=== PATIENT | female | born 2000 | race Caucasian/White ===

== ENCOUNTER 2022-01-16 15:20 | Inpatient (IN) | payer OTHER ==
[2022-01-16 18:15] VITALS: BMI 29.8
[2022-01-16] MEDS ORDERED: DINOPROSTONE 10 MG VAGINAL SUPPOSITORY VG ONE (18:15)
[2022-01-16] MEDS: DEXTROSE 5%-LACTATED RINGERS 1,000 ML IV SCH (19:55)
[2022-01-16] MEDS ORDERED: ELECTROLYTE-148 SOLN 1,000 ML IV SCH (20:30)
[2022-01-16] MEDS ORDERED: DEXTROSE 5%-LACTATED RINGERS 500 ML IV SCH (21:00)
[2022-01-17] MEDS ORDERED: PROMETHAZINE HCL 25 MG/1 ML VIAL ONE (02:04)
[2022-01-17] MEDS ORDERED: BUTORPHANOL TARTRATE 1 MG/ML VIAL ONE (02:04)
[2022-01-17] MEDS ORDERED: PROMETHAZINE HCL 25 MG/1 ML VIAL IVPB ONE (04:45)
[2022-01-17] MEDS ORDERED: BUTORPHANOL TARTRATE 1 MG/ML VIAL IVPB ONE (04:45)
[2022-01-17] MEDS ORDERED: OXYTOCIN 30 UNITS in 0.9% NS 30 UNIT/500 ML INFUS.BAG IVPB SCH (05:30)
[2022-01-17] MEDS ORDERED: OXYTOCIN 30 UNITS in 0.9% NS 30 UNIT/500 ML INFUS.BAG IVPB ONE (05:58)
[2022-01-17] MEDS: ELECTROLYTE-148 SOLN 500 ML IV SCH (07:00)
[2022-01-17] MEDS ORDERED: FENTANYL/BUPIVACAINE/NS/PF - PCEA - 50 ML DISP.SYRIN EP ONE ×2 (09:04→13:36)
[2022-01-17] MEDS ORDERED: BUPIVACAINE HCL/PF 0.25% (2.5MG/ML) 10 ML VIAL ONE ×3 (09:47→14:55)
[2022-01-17] MEDS ORDERED: NALOXONE HCL 0.4 MG/ML VIAL IVPUSH PRN (09:50)
[2022-01-17] MEDS: FENTANYL/BUPIVACAINE/NS/PF - PCEA - 50 ML DISP.SYRIN EP SCH ×2 (10:00→13:45)
[2022-01-17] MEDS ORDERED: OXYTOCIN 20 UNITS in 0.9% NS 20 UNIT/1,000 ML INFUS.BAG IV ONE (13:28)
[2022-01-17] MEDS ORDERED: LIDOCAINE HCL 1% PRESERVATIVE FREE - 30ML VIAL ONE (13:28)
[2022-01-17] MEDS ORDERED: AMPICILLIN SODIUM 2 GM VIAL ONE (14:34)
[2022-01-17] MEDS ORDERED: ACETAMINOPHEN INJECTION 100 ML IVPB ONE (14:34)
[2022-01-17] MEDS ORDERED: ACETAMINOPHEN 1000 MG/100 ML BAG IVPB ONE (14:35)
[2022-01-17] MEDS ORDERED: AMPICILLIN - 2 GM in SODIUM CHLORIDE 100 ML IVPB ONE (14:35)
[2022-01-17] MEDS ORDERED: ACETAMINOPHEN 325 MG TABLET (FP) PO PRN (16:47)
[2022-01-17] MEDS ORDERED: WITCH HAZEL 50% (TUCKS) 40 PAD/JAR PAD TP PRN (16:47)
[2022-01-17] MEDS ORDERED: oxyCODONE HCL 5 MG TABLET PO PRN (16:47)
[2022-01-17] MEDS ORDERED: BENZOCAINE 28 GM HEMORRHOIDAL OINTMENT TP PRN (16:47)
[2022-01-17] MEDS ORDERED: BISACODYL 10 MG SUPP.RECT RC PRN (16:47)
[2022-01-17] MEDS ORDERED: METHYLERGONOVINE MALEATE 0.2 MG/1 ML AMP IM PRN (16:47)
[2022-01-17] MEDS ORDERED: BENZOCAINE 20% 57 GM BOTTLE TP PRN (16:47)
[2022-01-17] MEDS ORDERED: IBUPROFEN 600 MG TABLET (FP) PO PRN (16:47)
[2022-01-17] MEDS ORDERED: OXYTOCIN 20 UNITS in 0.9% NS 20 UNIT/1,000 ML INFUS.BAG IV SCH (17:00)
[2022-01-17] MEDS ORDERED: AMPICILLIN - 1 GM in SODIUM CHLORIDE 100 ML IVPB SCH (18:35)
[2022-01-18 06:36] LABS: HEMATOCRIT 29.8 % (32.4-45.2); HEMOGLOBIN 10.1 GM/dL (10.7-15.3); MCH 31.5 pg (25.7-33.7); MCHC 33.9 g/dl (32.0-36.0); MEAN PLT VOLUME 9.4 fl (7.5-11.1); PLATELET COUNT 194 10^3/uL (134-434); RBC 3.21 M/mm3 (3.60-5.2); RDW 14.2 % (11.6-15.6); WHITE BLOOD COUNT 20.1 K/mm3 (4.0-10.0)
[2022-01-18 09:34] LABS: ANISOCYTOSIS 1+; MACROCYTOSIS 1+; OVALOCYTE 1+
[2022-01-18] MEDS: DEXTROSE 5%-LACTATED RINGERS 1,000 ML IV SCH (20:01)
[2022-01-18] MEDS: ELECTROLYTE-148 SOLN 500 ML IV SCH (20:01)
[2022-01-18] MEDS ORDERED: SENNOSIDES/DOCUSATE COMBO (SENNA PLUS) TABLET (UD) PO PRN (22:00)
[2022-01-19 08:49] VITALS: BP 126/68; PULSE 88; TEMP 98
== END 2022-01-19 11:15 | disposition home or self-care (01) | DRG 560 ==
LOC: JLDR 15:20 → J3W 01-17 18:27
PROVIDERS: ADMIT Specialist; ATTEND Specialist
PROC: 3E0P7VZ Introduction of Hormone into Female Reproductive, Via Natural or Artificial Opening (ICD-10-PCS; 2022-01-16)
PROC: 10E0XZZ Delivery of Products of Conception, External Approach (ICD-10-PCS; principal; 2022-01-17)
PROC: 10907ZC Drainage of Amniotic Fluid, Therapeutic from Products of Conception, Via Natural or Artificial Opening (ICD-10-PCS; 2022-01-17)
PROC: 0W8NXZZ Division of Female Perineum, External Approach (ICD-10-PCS; 2022-01-17)
DX: O76 Abnormality in fetal heart rate and rhythm complicating labor and delivery (principal); Z3A.39 39 weeks gestation of pregnancy; Z37.0 Single live birth
CPT/HCPCS: 36415; 59409; 80053; 85025; 85027; 85610; 85730; 86780; 86850; 86900; 86901; C9803-CS; U0003; U0005